=== PATIENT | female | born 1995 | race African-American/Black ===

== ENCOUNTER 2023-03-12 22:21 | Emergency (ER) | payer SELFPAY ==
[2023-03-12 22:37] VITALS: BP 141/94
[2023-03-12 22:51] LABS: % Basophils 0.7 % (0-2); % Eosinophils 2.4 % (0-6); % Immature Granulocytes 0.3 % (0-0.5); % Lymphocytes 46.3 % (20.5-51.1); % Monocytes 7.1 % (1.7-9.3); % Neutrophils 43.2 % (42.2-75.2); Absolute Basophils 0.1 10^3/uL (0-0.2); Absolute Eosinophils 0.2 10^3/uL (0-0.7); Absolute Lymphocytes 3.5 10^3/uL (1.2-3.4); Absolute Monocytes 0.5 10^3/uL (0.1-0.6); Absolute Neutrophils 3.2 10^3/uL (1.4-6.5); Hematocrit 38.6 % (37.0-47.0); Hemoglobin 13.4 g/dL (12.0-16.0); Mean Corp Hgb Conc. 34.7 g/dL (33.0-37.0); Mean Corpuscular Hgb 29.6 pg (27.0-31.0); Mean Corpuscular Volume 85.4 fL (81.0-99.0); Mean Platelet Volume 8.7 fL (7.4-10.4); Nucleated Red Blood Cells % 0 %; Platelet Count 442 10^3/uL (130-400); Red Blood Cell Count 4.52 10^6/uL (4.20-5.40); White Blood Cell Count 7.5 10^3/uL (4.8-10.8)
[2023-03-12 23:06] LABS: ALT (SGPT) 22 U/L (0-35); AST (SGOT) 24 U/L (14-36); Albumin 4.7 g/dl (3.5-5.0); Alkaline Phosphatase 99 U/L (38-126); Blood Urea Nitrogen 12 mg/dl (7-17); Calcium 9.8 mg/dl (8.4-10.2); Carbon Dioxide 24 mmol/L (22-30); Chloride 106 mmol/L (98-107); Glucose 94 mg/dl (70-99); Potassium 4.3 mmol/L (3.5-5.1); Sodium 136 mmol/L (135-145); Total Bilirubin 0.5 mg/dl (0.2-1.3); Total Protein 7.8 g/dl (6.3-8.2); eGFR > 60.00
[2023-03-12 23:07] LABS: HCG, Serum Qualitative Screen Positive
[2023-03-13 00:57] LABS: Beta HCG Quantitative 7.63 mIU/ml
--- NOTE | 2023-03-13 01:09 | ED.GENMED ---
History of Present Illness
General
Chief Complaint: Headache
Source: patient
Time Seen by Provider: 03/13/23 00:53
Travel History
Have you had any contact with someone who has COVID-19?: No
Do you have any symptoms of coronavirus? Fever > 100 degrees, chills, cough, shortness of breath, sore throat, loss of taste or smell, muscle aches, or headache?: No
History of Present Illness
History of Present Illness:
27-year-old female presents to the emergency room complaining of having a headache. She has had a headache for the past week. Patient states that she gets occasional migraines. These have been related in the past to head injuries. She did have a
bump on her head about a month ago. She denies nausea. She denies any vomiting. She denies any focal weakness numbness or tingling. Patient did have in vitro fertilization performed 4 days ago.
Past History
Past History
ED Past Medical History: Other (Allergies)
ED Past Surgical History: None
Social History
Tobacco: Non-smoker
Personal: Single
Living: with family
Family History
Family History: Other (Noncontributory)
Phy Exam
Physical Exam
Physical Exam:
General: Awake, Alert, Oriented X3. No acute distress.
Vitals: unremarkable
Head: Atraumatic
Eyes: Pupils equal, EOMI
Throat: Airway intact, no exudates
Neck: Trachea midline
Lungs: Clear and equal b/l
Heart: Regular rate, no murmurs
Abd: Soft, Nontender, No pulsatile mass
Neuro: Cranial nerves intact, muscle strength equal bilaterally, cerebellar exam normal
Skin: Warm, dry, no rash
Extremities: pulses equal b/l, no edema
Course
Orders/Labs/Results
Orders:
Orders
03/12/23 22:38
Test Result ONCE
03/12/23 22:46
Beta HCG Quantitative Urgent
Comment: ADDED
Complete Blood Count/With Diff Urgent
Comprehensive Metabolic Panel Urgent
HCG, Serum Qualitative Screen Urgent
03/13/23 00:07
Add On- LAB Urgent
Tests Added?: HCG Quantitative
03/13/23 01:08
0.9% Sodium Chloride 500 ml [Nss] 500 ml IV BOLUS
Diphenhydramine [Benadryl] 25 mg IV NOW STA
Metoclopramide [Reglan] 10 mg IV NOW STA
Abnormal Lab Results
03/12/23
22:46
Plt Count 442 H 10^3/uL
(130-400)
Absolute Lymphs (auto) 3.5 H 10^3/uL
(1.2-3.4)
03/12/23 22:46
03/12/23 22:46
Vital Signs
Initial and Last Documented VS:
Initial Vital Signs
Temp Pulse Resp BP Pulse Ox
98.4 F 83 17 141/94 99
03/12/23 22:37 03/12/23 22:37 03/12/23 22:37 03/12/23 22:37 03/12/23 22:37
Last Documented Vital Signs
Temp Pulse Resp BP Pulse Ox
98.4 F 94 16 125/78 98
03/12/23 22:37 03/13/23 03:00 03/13/23 03:00 03/13/23 03:00 03/13/23 03:00
MDM/Problems Addressed
Differential Diagnosis Includes:
migraine headache, tension headache,
MDM/Problems Addressed:
Pt presents with headache. She has had similar headaches in the past and states has been diagnosed with migraine headaches. She takes Tylenol and ibuprofen. These medications are not working this time. She is found to have a positive
test. Discussed that very well urine avoiding medications will be preferable. However patient states her headache is a significant 1 and she needs something to help with the symptoms. Therefore we will give Reglan and Benadryl which are
both category B
Pt felt better after treatment. STable for discharge home. Will follow up with her fertility specialist.
*Critical Care Note
Total Time (30-74mins, 75-104mins- exclusive of procedures): Not Applicable
ED Attending Note
-
Portions of this chart may have been created with voice recognition software.� Occasional wrong word or��sound alike� substitutions may have occurred due to the inherent limitations of voice recognition software.
Discharge Plan
Departure
Patient Disposition: Home (Routine Discharge)
Date of Disposition: 03/13/23
Time of Disposition: 02:15
Patient with high blood pressure during this ER visit?: No
Condition: Good
Discharge Problem:
Migraine,
Instructions: Migraines (DC), - The First Month
Prescriptions:
No Action
fluoxetine [Prozac] 40 MG capsule
40 mg PO DAILY
cetirizine 10 MG tablet
10 mg PO DAILY
montelukast 10 MG tablet
10 mg PO DAILY
methylphenidate HCl [Concerta] 18 MG tablet extended release 24hr
18 mg PO DAILY
norelgestromin-ethin.estradiol [Xulane] 1 EACH patch weekly
1 ea TD WEEKLY
cholecalciferol (vitamin D3) 5,000 UNIT tablet
50,000 unit PO WEEKLY
Patient Comments:
takes on a friday
sumatriptan succinate 50 MG tablet
50 mg PO PRN PRN (Reason: migraines)
propranolol 10 MG tablet
10 mg PO DAILY
Referrals:
PRIVATE,PHYSICIAN [Family Provider] -
Interventions
Interventions:
*Risk Screen - Suicide Last Done: 03/12/23 22:38
*General Assessment Last Done: 03/12/23 22:38
*Neglect/Abuse Screening Last Done: 03/12/23 22:38
*ED COVID-19 Vaccine History Last Done: 03/12/23 22:38
*Nursing Disposition Last Done: 03/13/23 03:00
ED- Neurological Assessment Last Done: 03/13/23 01:15
Discharge Date and Time
Discharge Date/Time: 03/13/23 03:01
[2023-03-13] MEDS: REGLAN 10 MG IV (01:24)
[2023-03-13] MEDS: BENADRYL 25 MG IV (01:25)
[2023-03-13] MEDS: NSS 500 IV (01:25)
[2023-03-13 01:30] VITALS: BP 117/80
[2023-03-13 02:00] VITALS: BP 125/78
[2023-03-13 03:00] VITALS: BP 125/78
== END 2023-03-13 03:01 | disposition home or self-care (01) ==
LOC: EMR 22:21
PROVIDERS: Emergency Medicine; EMERGENCY PHYSICIAN Emergency Medicine
DX: O26.899 Other specified pregnancy related conditions, unspecified trimester (principal); G43.909 Migraine, unspecified, not intractable, without status migrainosus; Z3A.00 Weeks of gestation of pregnancy not specified
CPT/HCPCS: 99284; 96374; 96375; 80053; 84702; 84703; 85025